=== PATIENT | female | born 1985 | race Caucasian/White ===

== ENCOUNTER 2017-05-15 19:13 | Emergency (ER) | payer OTHER ==
[~2017-05-15] VITALS: Ht 160 cm; Wt 63.5 kg
--- NOTE | 2017-05-15 19:20 | ED.ADGEN ---
Past History Past Medical History: Migraines Adult General Chief Complaint Chief Complaint " I woke up yesterday.. with this severe headache.. and it never gotten better.. and some aches.. but I had mastitis...in my right breast and started me on Dicloxacillin... I am pumping for breast feeding... but this head ache has never gone away..." HPI HPI Patient is a 31 year old female who presents with above hx and complaints migraine -like headache. Patient has photophobia. Patient has nausea. Patient denies any travel. Mother has had a recent viral illness presentation. Patient is normally healthy. Patient delivery 5 months ago, L has some mastitis right breast patient denies any previous history of significant migraine. Patient denies any trauma.. Patient follows at [facility]. Review of Systems Review of Systems Constitutional: History of fever or chills [] Eyes: Denies change in visual acuity, redness, or eye pain [] HENT: Denies nasal congestion or sore throat [] Respiratory: Denies cough or shortness of breath [. History of right mastitis] Cardiovascular: No additional information not addressed in HPI [] GI: Denies abdominal pain, , vomiting, bloody stools or diarrhea. The patient has complaints of []nausea : Denies dysuria or hematuria [] Musculoskeletal complains of generalized myalgia Integument: Denies rash or skin lesions [] Neurologic: Complaints of headache. Denies, focal weakness or sensory changes [] Endocrine: Denies polyuria or polydipsia [] Family History Family History Mother has hypertension and hypothyroidism Current Medications Current Medications Current Medications Medications (Trade) Dose Ordered Sig/Shruthi Start Time Stop Time Status Last Admin Dose Admin Diphenhydramine HCl (Benadryl) 50 mg 1X ONCE 05/15/17 20:15 05/15/17 20:16 DC 05/15/17 20:09 50 MG Fentanyl Citrate (Fentanyl 2ml Vial) 50 mcg 1X ONCE 05/15/17 20:30 05/15/17 20:31 DC 05/15/17 20:15 50 MCG Fentanyl Citrate (Fentanyl 5ml Vial) 50 mcg 1X ONCE 05/15/17 20:15 05/15/17 20:16 DC Lactated Ringer's 1,000 ml @ 1,000 mls/hr Q1H 05/15/17 19:45 05/15/17 20:07 DC 05/15/17 20:04 1,000 MLS/HR Promethazine HCl (Phenergan) 25 mg 1X ONCE 05/15/17 20:15 05/15/17 20:16 DC 05/15/17 20:09 25 MG See nursing for home meds Allergies Allergies Allergies Coded Allergies Type Severity Reaction Last Updated Verified No Known Drug Allergies 05/15/17 No Physical Exam Physical Exam Constitutional: Well developed, well nourished, in moderately acute distress, non-toxic appearance. [] HENT: Normocephalic, atraumatic, bilateral external ears normal, oropharynx moist, no oral exudates, nose normal. [] Eyes: PERRLA, EOMI, conjunctiva normal, no discharge. [] Photophobia. No field deficits Neck: Normal range of motion, no tenderness, supple, no stridor. [] Cardiovascular:Heart rate regular rhythm, no murmur [] Lungs & Thorax: Bilateral breath sounds clear to auscultation [. Mastitis right Abdomen: Bowel sounds normal, soft, no tenderness, no masses, no pulsatile masses. [] Skin: Warm, dry, no erythema, no rash. [] Back: No tenderness, no CVA tenderness. [] Extremities: No tenderness, no cyanosis, no clubbing, ROM intact, no edema. [] Neurologic: Alert and oriented X 3, normal motor function, normal sensory function, no focal deficits noted. DTR + patella and brachial. No drift. Finger to nose off. Rt. hand dominate. Distal sensation intact. Psychologic: Affect anxious,, judgement normal, mood depressed. Current Patient Data Vital Signs Vital Signs Date Time Temp Pulse Resp B/P (MAP) Pulse Ox O2 Delivery O2 Flow Rate FiO2 05/15/17 22:16 80 16 108/66 (80) 98 Room Air 05/15/17 19:13 98.4 Lab Results Laboratory Tests Test 05/15/17 19:20 05/15/17 19:41 05/15/17 19:45 Urine Collection Type Unknown Urine Color Yellow Urine Clarity Hazy Urine pH 6.0 Urine Specific [place] 1.020 Urine Protein 30 mg/dl (NEG-TRACE) Urine Glucose (UA) Neg mg/dL (NEG) Urine Ketones (Stick) 15 mg/dL (NEG) Urine Blood Small (NEG) Urine Nitrite Neg (NEG) Urine Bilirubin Neg (NEG) Urine Urobilinogen Dipstick 2 mg/dL (0.2 mg/dL) Urine Leukocyte Esterase Small (NEG) Urine RBC 1-2 /HPF (0-2) Urine WBC 5-10 /HPF (0-4) Urine Squamous Epithelial Cells Many /LPF Urine Bacteria 0 /HPF (0-FEW) Urine Mucus Mod /LPF Urine Yeast Present /HPF Urine Opiates Screen Neg (NEG) Urine Methadone Screen Neg (NEG) Urine Barbiturates Neg (NEG) Urine Phencyclidine Screen Neg (NEG) Urine Amphetamine/Methamphetamine Neg (NEG) Urine Benzodiazepines Screen Neg (NEG) Urine Cocaine Screen Neg (NEG) Urine Cannabinoids Screen Neg (NEG) Urine Ethyl Alcohol Neg (NEG) POC Urine HCG, Qualitative hcg negative (Negative) White Blood Count 14.3 x10^3/uL (4.0-11.0) H Red Blood Count 4.40 x10^6/uL (3.50-5.40) Hemoglobin 13.1 g/dL (12.0-15.5) Hematocrit 37.9 % (36.0-47.0) Mean Corpuscular Volume 86 fL (79-100) Mean Corpuscular Hemoglobin 30 pg (25-35) Mean Corpuscular Hemoglobin Concent 35 g/dL (31-37) Red Cell Distribution Width 13.2 % (11.5-14.5) Platelet Count 176 x10^3/uL (140-400) Neutrophils (%) (Auto) 79 % (31-73) H Lymphocytes (%) (Auto) 12 % (24-48) L Monocytes (%) (Auto) 6 % (0-9) Eosinophils (%) (Auto) 2 % (0-3) Basophils (%) (Auto) 0 % (0-3) Neutrophils # (Auto) 11.4 x10^3uL (1.8-7.7) H Lymphocytes # (Auto) 1.8 x10^3/uL (1.0-4.8) Monocytes # (Auto) 0.9 x10^3/uL (0.0-1.1) Eosinophils # (Auto) 0.3 x10^3/uL (0.0-0.7) Basophils # (Auto) 0.0 x10^3/uL (0.0-0.2) Erythrocyte Sedimentation Rate 16 (0-25) Prothrombin Time 10.8 SEC (9.4-11.4) Prothrombin Time INR 1.1 (0.9-1.1) PTT 26 SEC (23-33) Sodium Level 138 mmol/L (136-145) Potassium Level 3.4 mmol/L (3.5-5.1) L Chloride Level 106 mmol/L (98-107) Carbon Dioxide Level 23 mmol/L (21-32) Anion Gap 9 (6-14) Blood Urea Nitrogen 11 mg/dL (7-20) Creatinine 0.9 mg/dL (0.6-1.0) Estimated GFR (Cockcroft-Gault) 72.1 BUN/Creatinine Ratio 12 (6-20) Glucose Level 113 mg/dL (70-99) H Calcium Level 8.2 mg/dL (8.5-10.1) L Magnesium Level 1.6 mg/dL (1.8-2.4) L Total Bilirubin 0.4 mg/dL (0.2-1.0) Aspartate Amino Transferase (AST) 19 U/L (15-37) Alanine Aminotransferase (ALT) 20 U/L (14-59) Alkaline Phosphatase 63 U/L (46-116) C-Reactive Protein 93.0 mg/L (0-3.3) H Total Protein 7.2 g/dL (6.4-8.2) Albumin 3.4 g/dL (3.4-5.0) Albumin/Globulin Ratio 0.9 (1.0-1.7) L Influenza Type A (Rapid) Negative (NEGATIVE) Influenza Type B (Rapid) Negative (NEGATIVE) EKG EKG [] Radiology/Procedures Radiology/Procedures My interpretation CT of head shows no shift, mass, edema, bleed, or fracture. See formal report when available[] Course & Med Decision Making Course & Med Decision Making Pertinent Labs and Imaging studies reviewed. (See chart for details) Risk and benefits of spinal tap discussed. Pt. declines spinal tap at this time. Exhibits [facility] capacity. Pt. to follow up with primary. Take antibiotic as previously directed for the Mastitis. Return if any concerns. [] Final Impression Final Impression 1. Migraine[] 2. Mastitis 3. Leukocytosis 4. Urinary tract infection 5. Elevated Sed. Rate Problems: Dragon Disclaimer Dragon Disclaimer This electronic medical record was generated, in whole or in part, using a voice recognition dictation system. KELSY GRACIA MD May 15, 2017 19:20
[2017-05-15] MEDS ORDERED: IV RINGERS SOLUTION,LACTATED 1,000 ML IV SCH (19:45)
--- NOTE | 2017-05-15 20:09 | RAD ---
CT of the head without contrast, 05/15/2017: HISTORY: Headache The ventricles are within normal limits in size. There is no shift of the midline structures. There is no evidence of acute intracranial hemorrhage or mass effect. IMPRESSION: No acute intracranial abnormality is detected. Electronically signed by: Johnnie Salinas MD (05/15/2017 8:06 PM) [facility]
[2017-05-15 20:11] LABS: BASO % 0 % (0-3); EOS # 0.3 x10^3/uL (0.0-0.7); EOS % 2 % (0-3); HEMATOCRIT 37.9 % (36.0-47.0); HEMOGLOBIN 13.1 g/dL (12.0-15.5); LYMPH # 1.8 x10^3/uL (1.0-4.8); LYMPH % 12 % (24-48); MEAN CORPUSCULAR HEMOGLOBIN 30 pg (25-35); MEAN CORPUSCULAR HGB CONC 35 g/dL (31-37); MEAN CORPUSCULAR VOLUME 86 fL (79-100); MONO # 0.9 x10^3/uL (0.0-1.1); MONO % 6 % (0-9); NEUT # 11.4 x10^3uL (1.8-7.7); NEUT % 79 % (31-73); PLATELET COUNT 176 x10^3/uL (140-400); RED CELL DISTRIBUTION WIDTH 13.2 % (11.5-14.5); WHITE BLOOD COUNT 14.3 x10^3/uL (4.0-11.0)
[2017-05-15] MEDS ORDERED: PROMETHAZINE 25 MG TABLET. PO ONE (20:15)
[2017-05-15] MEDS ORDERED: fentaNYL PF 250 MCG/5 ML VIAL IV ONE (20:15)
[2017-05-15] MEDS ORDERED: diphenhydrAMINE 50 MG/ML VIAL IV ONE (20:15)
[2017-05-15 20:25] LABS: ALBUMIN 3.4 g/dL (3.4-5.0); ALBUMIN/GLOBULIN RATIO 0.9 (1.0-1.7); CALCIUM 8.2 mg/dL (8.5-10.1); CREATININE 0.9 mg/dL (0.6-1.0); GFR 72.1; MAGNESIUM 1.6 mg/dL (1.8-2.4); TOTAL BILIRUBIN 0.4 mg/dL (0.2-1.0); TOTAL PROTEIN 7.2 g/dL (6.4-8.2)
[2017-05-15 20:30] LABS: POTASSIUM 3.4 mmol/L (3.5-5.1)
[2017-05-15] MEDS ORDERED: fentaNYL PF 100 MCG/2 ML VIAL IV ONE (20:30)
[2017-05-15 20:43] LABS: AMPHETAMINE/METHAMPHETAMINE NEG (NEG); BARBITURATES NEG (NEG); BENZODIAZEPINES NEG (NEG); CANNABINOIDS NEG (NEG); COCAINE NEG (NEG); METHADONE NEG (NEG); OPIATES NEG (NEG); PHENCYCLIDINE NEG (NEG)
[2017-05-15 20:52] LABS: BILIRUBIN,URINE NEG (NEG); CLARITY,URINE HAZY; COLOR,URINE YELLOW; GLUCOSE,URINE NEG (NEG); NITRITE,URINE NEG (NEG); UROBILINOGEN,URINE 2 mg/dL (0.2 mg/dL)
[2017-05-15 20:58] LABS: BACTERIA,URINE 0 /HPF (0-FEW); SQUAMOUS EPITHELIAL CELL,UR MANY /LPF; YEAST,URINE PRESENT /HPF
[2017-05-15 21:01] LABS: INFLUENZA A PATIENT NEGATIVE (NEGATIVE); INFLUENZA B PATIENT NEGATIVE (NEGATIVE)
[2017-05-15] MEDS ORDERED: ONDA8TAB12 PO (21:40)
[2017-05-15] MEDS ORDERED: HYDR1TAB12 PO (21:40)
[2017-05-15 22:16] VITALS: BP 108/66
[2017-05-15 23:26] LABS: SEDIMENTATION RATE 16 (0-25)
== END 2017-05-15 22:26 | disposition home or self-care (01) ==
LOC: ER 19:13
DX: G43.909 Migraine, unspecified, not intractable, without status migrainosus (principal); N39.0 Urinary tract infection, site not specified; D72.829 Elevated white blood cell count, unspecified; N61.0 Mastitis without abscess; R70.0 Elevated erythrocyte sedimentation rate
CPT/HCPCS: 36415; 70450; 80053; 80307; 81001; 81025; 83735; 85025; 85610; 85651; 85730; 86140; 87040; 87086; 87804; 96361; 96374; 96375; 99285; J1200; J3010; J7120; Q0169; G0479